=== PATIENT | male | born 1985 | race Caucasian/White ===

== ENCOUNTER 2017-06-16 13:59 | Emergency (ER) | payer BC ==
[~2017-06-16] VITALS: Ht 180.3 cm; Wt 88.6 kg
[2017-06-16 14:07] VITALS: BP 167/88; PULSE 107; RESP 18; TEMP 98.7; O2SAT 100
[2017-06-16 14:30] VITALS: BP 173/79; PULSE 102; RESP 22; O2SAT 100
[2017-06-16] MEDS ORDERED: diphenhydrAMINE HCL 50 MG/ML VIAL IV PUSH ONE ×2 (14:30→18:15)
[2017-06-16] MEDS ORDERED: methylPREDNISolone SOD SUCC 125 MG/2 ML VIAL IV PUSH ONE (14:30)
[2017-06-16] MEDS ORDERED: SODIUM CHLOR 0.9% 1000 ML INJ 1,000 ML IV ONE (14:30)
[2017-06-16] MEDS ORDERED: EPIP0.3I IM (14:30)
[2017-06-16] MEDS ORDERED: FAMOTIDINE 20 MG/2 ML VIAL IV PUSH ONE (14:30)
[2017-06-16] MEDS ORDERED: EPINEPHrine HCL (1:1000) 1 MG/ML VIAL IM ONE (14:45)
[2017-06-16 16:07] VITALS: BP 141/85; PULSE 90; RESP 20; O2SAT 98
--- NOTE | 2017-06-16 18:18 | PD ---
HPI Chief Complaint: Allergic/Adverse Reaction Time Seen by Provider: 14:22 Travel History International Travel<30 days: No Contact w/Intl Traveler<30days: No Traveled to known affect area: No History of Present Illness HPI Patient is a 32-year-old male who comes in complaining of an allergic reaction. He has an allergy to peanuts and carries an EpiPen with him. He says that he was eating a chicken wrap from [employer] and he didn't realize that it had peanut sauce on it. He says that he vomited after realizing it, but does not think that he got all of it out. He did use his EpiPen. He also took 25 mg of Benadryl prior to arrival. He complains of swelling of his throat and chest tightness. He says he is feeling in his normal state of health prior to the event. Severity is moderate. PFSH Past Medical History Medical History: Denies Significant Hx Tetanus Vaccination: > 5 Years Influenza Vaccination: Yes Social History Alcohol Use: Yes (SOCIALLY) Tobacco Use: No Substance Use: No Allergies-Medications (Allergen,Severity, Reaction): Coded Allergies: peanut (Verified Allergy, Severe, 06/16/17) Reported Meds & Prescriptions Reported Meds & Active Scripts Active Reported Epipen 2-James Inj (Epinephrine) 0.3 Mg/0.3 Ml Pfpen 0.3 Mg IM ONCE PRN Review of Systems Except as stated in HPI: all other systems reviewed are Neg General / Constitutional: No: Fever, Chills HENT: No: Headaches, Lightheadedness Cardiovascular: No: Chest Pain or Discomfort Respiratory: Positive: Shortness of Breath Gastrointestinal: Positive: Vomiting, No: Nausea Skin: Positive Rash, Positive Itching Neurologic: No: Weakness, Dizziness Physical Exam Narrative GENERAL: Awake and alert, in no acute distress. SKIN: Focused skin assessment warm/dry. Erythema of both palms. HEAD: Atraumatic. Normocephalic. EYES: Pupils equal and round. No scleral icterus. No injection or drainage. ENT: No uvular swelling or tonsillar swelling, airway is patent. Mild swelling of the lips. Mucous membranes pink and moist. NECK: Trachea midline. No JVD. CARDIOVASCULAR: Regular rate and rhythm. No murmur appreciated. RESPIRATORY: No accessory muscle use. Clear to auscultation. Breath sounds equal bilaterally. GASTROINTESTINAL: Abdomen soft, non-tender, nondistended. MUSCULOSKELETAL: No obvious deformities. No clubbing. No cyanosis. No edema. NEUROLOGICAL: Awake and alert. No obvious cranial nerve deficits. Motor grossly within normal limits. Normal speech. PSYCHIATRIC: Appropriate mood and affect; insight and judgment normal. Data Data Last Documented VS Vital Signs Date Time Temp Pulse Resp B/P (MAP) Pulse Ox O2 Delivery O2 Flow Rate FiO2 06/16/17 18:55 85 18 135/78 (97) 99 Room Air 06/16/17 14:30 2.00 06/16/17 14:07 98.7 Orders Orders Iv Access Insert/Monitor (06/16/17 14:22) Methylprednisolone So Succ Inj (Solumedr (06/16/17 14:30) Diphenhydramine Inj (Benadryl Inj) (06/16/17 14:30) Famotidine Inj (Pepcid Inj) (06/16/17 14:30) Sodium Chlor 0.9% 1000 Ml Inj (Ns 1000 M (06/16/17 14:30) Epinephrine (1:1000) Inj (Adrenalin (1:1 (06/16/17 14:45) Diphenhydramine Inj (Benadryl Inj) (06/16/17 18:15) MDM Medical Decision Making Medical Screen Exam Complete: Yes Emergency Medical Condition: Yes Medical Record Reviewed: Yes Differential Diagnosis Allergic reaction versus anaphylaxis versus angioedema Narrative Course Patient is a 32-year-old male who comes in after an allergic reaction to peanuts. He is complaining of throat swelling and chest tightness. IV established, patient given Solu-Medrol, Benadryl, famotidine. Given epi IM. Patient observed in the emergency department for several hours with improvement of his symptoms and no further worsening. He'll be discharged with prescription for prednisone. He still has an EpiPen at home. Advised to avoid peanuts. Advised to return any time for any worsening symptoms. Diagnosis Primary Impression: Allergic reaction Qualified Codes: T78.40XA - Allergy, unspecified, initial encounter Patient Instructions: Anaphylaxis (ED), General Instructions Additional Instructions: Take the prednisone starting tomorrow. Use her EpiPen if needed. Return to the ED as needed for any worsening symptoms. Take Benadryl as needed. Scripts Prednisone (Prednisone) 50 Mg Tab 50 MG PO DAILY for 4 Days, #4 TAB 0 Refills Prov: Cristina Humphreys MD 06/16/17 Disposition: 01 DISCHARGE HOME Condition: Stable Cristina Humphreys MD Jun 16, 2017 18:18
[2017-06-16 18:55] VITALS: BP 135/78; PULSE 85; RESP 18; O2SAT 99
[2017-06-16] MEDS ORDERED: PRED50 PO (19:33)
== END 2017-06-16 20:34 | disposition home or self-care (01) ==
LOC: NED 13:59 → NEPE 20:34
DX: T78.40XA Allergy, unspecified, initial encounter (principal)
CPT/HCPCS: 96361; 96372; 96374; 96375; 96376; 99284; J0171; J1200; J2930; J7030